=== PATIENT | female | born 1970 | race Caucasian/White ===

== ENCOUNTER → 2016-07-05 | Outpatient (CLI) | payer BC ==
--- NOTE | 2016-07-06 14:31 | US ---
Grayscale, color Doppler and spectral Doppler imaging of the left lower extremity arterial structures was performed HISTORY: Left lower leg pain Left lower extremity arterial Doppler FINDINGS: Triphasic and biphasic waveforms noted throughout the left lower extremity. There is a 40 cm/s drop in the peak systolic velocity within the mid to distal superficial femoral artery. There is also a 50 cm/s drop within the distal superficial femoral artery to the mid popliteal artery. IMPRESSION: While there are triphasic and biphasic waveforms within the left lower extremity arterial structures there is a drop-off of the peak systolic velocity within the superficial femoral artery and popliteal artery. Recommend an MR angiogram of bilateral lower extremities to rule out the possibility of a focal stenosis. Electronically signed by: Carlos Ocampo MD 07/06/2016 2:29 PM [employer]
== END | disposition home or self-care (01) ==
LOC: US 13:33
PROVIDERS: ATTEND Nurse Practitioner Family
DX: M79.662 Pain in left lower leg (principal)

== ENCOUNTER 2016-08-29 13:13 | Emergency (ER) | payer BC ==
[2016-08-29] MEDS ORDERED: LIDOCAINE VIS-MYLANTA 30 ML UD PO ONE (13:26)
[2016-08-29] MEDS ORDERED: SUCRALFATE 1 GM/10 ML 1 GM UD PO ONE (13:26)
--- NOTE | 2016-08-29 14:36 | RAD ---
EXAM DESCRIPTION: Single view of the chest two views of the abdomen CLINICAL HISTORY: 45 years Female, epigastric and chest pain IMPRESSION: Lungs are clear. Heart size is unremarkable. No free air subjacent to the diaphragm. Nonspecific small bowel gas pattern. No radiodense renal stones. Electronically signed by: Carlos Ocampo MD 08/29/2016 2:34 PM CDT
[2016-08-29] MEDS ORDERED: ALUMINUM & MAGNESIUM HYDROXIDE 30 ML UD PO ONE (16:28)
[2016-08-29] MEDS ORDERED: HYDROcodone 5MG/APAP 325MG 1 EA TAB PO ONE (16:28)
[2016-08-29] MEDS ORDERED: ONDANSETRON ODT 8 MG TAB SL SCH (17:00)
[2016-08-29] MEDS ORDERED: NITROGLYCERIN 0.4 MG 25 EA TAB SL ONE (17:28)
--- NOTE | 2016-08-29 18:14 | ED.PDOC ---
History of Present Illness - General Chief Complaint: Chest Pain/CT Stated Complaint: chest discomfort Time Seen by Provider: 08/29/16 13:20 Source: patient Exam Limitations: no limitations - History of Present Illness Initial Comments: the patient is a 45-year-old female presenting to emergency room secondary to chest and abdominal discomfort. Symptoms started last night around 10 PM and progressively worsened this morning up to around 8-9 out of 10. Chest pain is parasternal as well as epigastric discomfort and left upper quadrant discomfort that does radiate around to the left side of the back. No palpitations. No definite shortness of breath. The patient was seen a few months ago for a GI bleed with some associated diarrhea and did have some gastritis at that time as well. She has not been taking any acid reducing medications with any frequency and she does have heartburn symptoms with some regularity. She does have a very stressful job and has recently become more stressful. No syncope or near- syncope. The patient also did have a CT scan of the abdomen and pelvis a few months ago that was reassuring. Additionally the patient did have a workup for the possibility of a DVT and PE a few months ago that was also negative. Timing/Duration: unsure Severity: moderate Improving Factors: medication Worsening Factors: nothing Associated Symptoms: chest pain, loss of appetite, malaise, nausea/vomiting Allergies/Adverse Reactions: Allergies Prochlorperazine [From Compazine] Allergy (Verified 02/27/16 10:24) Home Medications: Ambulatory Orders Aspirin [Aspirin Adult Low Dose] 81 mg PO DAILY 02/27/16 Calcium 500 mg PO DAILY 02/27/16 Ciprofloxacin [Cipro] 500 mg PO BID #20 tab 02/27/16 Famotidine 20 mg PO DAILY #30 tab 02/27/16 Metronidazole 500 mg PO TID #30 tab 02/27/16 Multiple Vitamin [Multi Vitamin] 1 tab PO DAILY 02/27/16 Ondansetron [Zofran Odt] 4 mg PO Q4H PRN #10 tab 02/27/16 Esomeprazole Magnesium [Nexium] 40 mg PO BID #60 gra 08/29/16 Sucralfate Tab [Carafate Tab] 1 gm PO QID #120 tab 08/29/16 Review of Systems - Review of Systems Constitutional: States: malaise EENTM: States: no symptoms reported Respiratory: States: no symptoms reported Cardiology: States: chest pain Gastrointestinal/Abdominal: States: abdominal pain, nausea, vomiting Genitourinary: States: no symptoms reported Musculoskeletal: States: back pain Skin: States: no symptoms reported Neurological: States: anxiety Endocrine: States: no symptoms reported All other Systems: No Change from Baseline Past Medical History (General) - Patient Medical History Hx Seizures: No Hx Stroke: No Hx Dementia: No Hx Asthma: No Hx of COPD: No Hx Cardiac Disorders: No Hx Congestive Heart Failure: No Hx Pacemaker: No Hx Hypertension: No Hx Thyroid Disease: No Hx Diabetes: No Hx Gastroesophageal Reflux: No Hx Renal Disease: No Hx Cancer: No Hx of HIV: No Hx Hepatitis C: No Hx MRSA: No Surgical History: no surgical history - Vaccination History Hx Tetanus, Diphtheria Vaccination: No Hx Influenza Vaccination: No Hx Pneumococcal Vaccination: No - Social History Hx Tobacco Use: No - Female History Patient : No - hysterectomy Family Medical History - Family History Mother Family History: No Known Living Status: Still Living Hx Family Hypertension: Yes Physical Exam - Physical Exam General Appearance: Alert, Anxious Eye Exam: bilateral normal Ears, Nose, Throat: hearing grossly normal, normal ENT inspection, normal pharynx Neck: non-tender, full range of motion, supple, normal inspection Respiratory: chest non-tender, lungs clear, normal breath sounds, no respiratory distress, no accessory muscle use Cardiovascular/Chest: normal peripheral pulses, regular rate, rhythm, no edema Peripheral Pulses: radial,right: 2+, radial,left: 2+, dorsalis pedis,right: 2+, dorsalis pedis,left: 2+ Gastrointestinal/Abdominal: soft, other - the patient has epigastric and left upper quadrant discomfort palpation. No definite rebound or peritoneal signs. Rectal Exam: deferred Back Exam: normal inspection, no vertebral tenderness, other - no definite left- sided costovertebral angle tenderness though there is some discomfort to deep palpation Extremity: normal range of motion, non-tender, normal inspection, no pedal edema , no calf tenderness, normal capillary refill Neurologic: alert, normal mood/affect, oriented x 3 Skin Exam: normal color Comments: Vital Signs - 24 hr 08/29/16 08/29/16 08/29/16 13:38 14:30 15:25 Temperature 99.5 F Pulse Rate [ 99 H 94 H 87 Apical] Respiratory 20 20 20 Rate Blood Pressure 138/89 140/81 138/76 [Right Arm] O2 Sat by Pulse 96 96 95 Oximetry 08/29/16 16:14 Temperature Pulse Rate [ 76 Apical] Respiratory 20 Rate Blood Pressure 141/84 [Right Arm] O2 Sat by Pulse 95 Oximetry Progress - Progress Progress: 08/29/16 18:16 the patient is a 45-year-old female presented emergency room secondary to chest and abdominal pain. 2 sets of cardiac enzymes are negative. Symptoms are more consistent with gastritis and esophagitis at this point. Pain has improved since her arrival primarily with treatment with GI medications. Nitroglycerin did not seem to help definitively with the pain. Serial EKGs show no specific abnormalities or changes concerning for ischemia. Given the patient's recurrent GI symptoms, we do recommend that the patient be set up with her primary care doctor for an evaluation by gastroenterology and also be set up for an exercise tolerance test for risk stratification. Due to the likelihood of this discomfort coming from the intestinal tract, I do not recommend starting aspirin for at least the next week. She recently keep well-hydrated. She needs to avoid constipation. She is to follow-up with her primary care doctor in 2-3 days. She needs to return to the emergency room for any worsening whatsoever. She does understand this and has agreed. the patient is going to be started on Carafate and Nexium for the next month. Maalox can also be used acutely for symptom flares. the patient has recently had a CT scan of the abdomen and it is not felt that a repeat scan is warranted at this time. She has also had a recent evaluation for a pulmonary embolus that was negative, in repeating the workup at this time is felt to be unproductive as symptoms seem to be inconsistent with that diagnosis. 08/29/16 18:21 - Results/Orders Results/Orders: Laboratory Tests 08/29/16 08/29/16 08/29/16 13:35 16:05 16:35 WBC 11.1 H RBC 4.83 Hgb 12.7 Hct 38.9 MCV 80.4 L MCH 26.2 L MCHC 32.6 L RDW 15.0 H Plt Count 287 MPV 8.2 Absolute Neuts (auto) 6.90 H Absolute Lymphs (auto) 3.00 Absolute Monos (auto) 0.90 H Absolute Eos (auto) 0.20 Absolute Basos (auto) 0.10 Neutrophils % 61.9 Lymphocytes % 27.4 Monocytes % 8.2 Eosinophils % 1.6 Basophils % 0.9 PT 11.2 INR 0.990 PTT (SP) 31.0 Sodium 141 Potassium 3.8 Chloride 104 Carbon Dioxide 27 Anion Gap 13.8 BUN 16 Creatinine 1.00 BUN/Creatinine Ratio 16.0 Random Glucose 100 Serum Osmolality 282.5 Calcium 9.4 Magnesium 2.2 Total Bilirubin 0.3 AST 19 ALT 16 Alkaline Phosphatase 91 Creatine Kinase 59 49 CK-MB (CK-2) 0.8 0.7 CK-MB (CK-2) % Not Reportable Not Reportable Troponin I < 0.02 < 0.02 B-Natriuretic Peptide 6.0 Serum Total Protein 8.5 H Albumin 4.4 Globulin 4.1 H Albumin/Globulin Ratio 1.1 Amylase 65 Lipase 39 Urine Color Yellow Urine Appearance Clear Urine pH 7.0 Ur Specific [place] 1.020 Urine Protein Negative Urine Glucose (UA) Negative Urine Ketones Trace Urine Blood Trace-lysed H Urine Nitrite Negative Urine Bilirubin Negative Urine Urobilinogen 0.2 Ur Leukocyte Esterase Negative Urine RBC 0-1 Urine WBC 0-1 Ur Epithelial Cells 0 Amorphous Sediment 1+ Urine Bacteria 0 chest x-ray shows no acute abnormality. Serial EKGs show normal sinus rhythm with a normal MD interval and QRS duration. No QT prolongation. No acute ST segment changes concerning for ischemia. [place] is grossly normal. Departure - Departure Clinical Impression: Esophagitis, Gastritis Disposition: Discharge to Home or Self Care Condition: Fair Departure Forms: ED Discharge - Pt. Copy, Patient Portal Self Enrollment Instructions: DI for Esophagitis, DI for Gastritis Diet: bland diet Activity: increase activity as tolerated Prescriptions: Sucralfate Tab [Carafate Tab] 1 gm PO QID #120 tab Esomeprazole Magnesium [Nexium] 40 mg PO BID #60 gra Home Medications: Ambulatory Orders Aspirin [Aspirin Adult Low Dose] 81 mg PO DAILY 02/27/16 Calcium 500 mg PO DAILY 02/27/16 Ciprofloxacin [Cipro] 500 mg PO BID #20 tab 02/27/16 Famotidine 20 mg PO DAILY #30 tab 02/27/16 Metronidazole 500 mg PO TID #30 tab 02/27/16 Multiple Vitamin [Multi Vitamin] 1 tab PO DAILY 02/27/16 Ondansetron [Zofran Odt] 4 mg PO Q4H PRN #10 tab 02/27/16 Esomeprazole Magnesium [Nexium] 40 mg PO BID #60 gra 08/29/16 Sucralfate Tab [Carafate Tab] 1 gm PO QID #120 tab 08/29/16 Additional Instructions: the patient is a 45-year-old female presented emergency room secondary to chest and abdominal pain. 2 sets of cardiac enzymes are negative. Symptoms are more consistent with gastritis and esophagitis at this point. Pain has improved since her arrival primarily with treatment with GI medications. Nitroglycerin did not seem to help definitively with the pain. Serial EKGs show no specific abnormalities or changes concerning for ischemia. Given the patient's recurrent GI symptoms, we do recommend that the patient be set up with her primary care doctor for an evaluation by gastroenterology and also be set up for an exercise tolerance test for risk stratification. Due to the likelihood of this discomfort coming from the intestinal tract, I do not recommend starting aspirin for at least the next week. She recently keep well-hydrated. She needs to avoid constipation. She is to follow-up with her primary care doctor in 2-3 days. She needs to return to the emergency room for any worsening whatsoever. She does understand this and has agreed. the patient is going to be started on Carafate and Nexium for the next month. Maalox can also be used acutely for symptom flares.
[2016-08-29] MEDS ORDERED: PANTOPRAZOLE SODIUM TAB 40 MG PO ONE (18:24)
[2016-08-29 18:48] VITALS: BP 115/81; TEMP 98.5; O2SAT 96
== END 2016-08-29 18:45 | disposition home or self-care (01) ==
LOC: ER 13:13
DX: K29.70 Gastritis, unspecified, without bleeding (principal); K20.9 Esophagitis, unspecified; Z79.82 Long term (current) use of aspirin; Z79.899 Other long term (current) drug therapy; Z88.8 Allergy status to other drugs, medicaments and biological substances

== ENCOUNTER → 2017-06-07 | Outpatient (CLI) | payer BC | LOC: GMAL 14:33 | PROVIDERS: ATTEND Family Medicine | DX: D51.3 Other dietary vitamin B12 deficiency anemia (principal); R53.83 Other fatigue ==